=== PATIENT | male | born 1995 | race Caucasian/White ===

== ENCOUNTER 2019-02-02 01:57 | Inpatient (IN) | payer OTHER ==
[~2019-02-02] VITALS: Ht 182.9 cm; Wt 97.7 kg
[2019-02-02 01:59] VITALS: Ht 182.9 cm; Wt 97.7 kg
--- NOTE | 2019-02-02 03:37 | NUR ---
RECEIVED 23 Y/O M C/O OF LEFT LOWER GROIN/LEG PAIN AND SOB. PATIENT HAD A HERNIAL MESH REMOVAL ON FRIDAY FROM [facility] AND PER PT STATES THAT HE FEELS LIKE HIS BODY IS REJECTING THE MESH. TENDERNESS AND INFLAMMATION TO L GROIN AREA, WARM TO THE TOUCH, SUTURE SITE INFLAMED. THE PAIN TO THE PATIENT'S LEFT LEG AND L GROIN HERNIA SITE COMES AND GOES AND DESCRIBES THE PAIN A BURNING PINS AND NEEDLE TYPE PAIN. CLEAR LUNG SOUNDS TO BUL/BLL, EVEN AND UNLABORED BREATHING, SYMMETRICAL CHEST EXPANSION.
--- NOTE | 2019-02-02 05:01 | NUR ---
DR. CONNORS AT BEDSIDE FOR MSE.
--- NOTE | 2019-02-02 05:17 | NUR ---
TECH AT BEDSIDE FOR BLOOD DRAW.
[2019-02-02 05:32] LABS: BASOPHIL % 0.6 % (0-2); PLATELET COUNT 251 x10^3mcL (130-400); RED CELL DISTRIBUTION WIDTH 11.8 % (11.5-14.5)
[2019-02-02 05:36] LABS: CALCIUM 9.5 mg/dL (8.5-10.1); CARBON DIOXIDE 27.9 mmol/L (21-32); CHLORIDE SERUM 103 mmol/L (98-107); CREATININE SERUM 0.9 mg/dL (0.7-1.3); GFR1 > 60 mL/min; GLUCOSE SERUM 96 mg/dL (74-106); POTASSIUM SERUM 3.6 mmol/L (3.5-5.1); SODIUM SERUM 141 mmol/L (136-145)
[2019-02-02 05:39] LABS: ALBUMIN 4.2 g/dL (3.4-5.0); ALKALINE PHOSPHATASE 80 U/L (46-116); ALT/SGPT 44 U/L (16-63); AST/SGOT 24 U/L (15-37); BILIRUBIN TOTAL 1.4 mg/dL (0.20-1.00); LIPASE 108 IU/L (73-393); TOTAL PROTEIN, SERUM 8.1 g/dL (6.4-8.2)
--- NOTE | 2019-02-02 06:17 | NUR ---
PT BROUGHT BACK FROM [facility] VIA [facility] BY [employer]
[2019-02-02 06:41] LABS: microscopic required? NO
--- NOTE | 2019-02-02 07:10 | NUR ---
RECIEVED REPORT FROM SAIDA. I WILL RESUME CARE OF PATIENT.
[2019-02-02 07:11] LABS: UA SPECIFIC GRAVITY >=1.030 (1.005-1.035); urine erythrocyte NEGATIVE (NEGATIVE)
--- NOTE | 2019-02-02 08:10 | NUR ---
PT C/O SOB AND SHAKINESS ALL OVER. PT IS AAOX4, TACHY SINUS, SPO2 @99% ON ROOM AIR. NOTIFIED MD OF VS. EKG COMPLETED BY PAMELA MORGAN. BREATHING IS E/U, SKIN IS COOL AND CLAMMY, INCISION INTACT ON ABDOMEN. APPLIED OXYGEN 2L VIA NASAL CANNULA FOR COMFORT. OFFERED ICE PACK FOR INCISION SITE. PT WAS MEDICATED PER MD ORDERS. IV IN LAC FLUSHED WITH 10CC SALINE, PATENT AND NO PAIN AT THE SITE. MOM AT THE BEDSIDE. WILL CONT TO MONITOR.
--- NOTE | 2019-02-02 09:05 | NUR ---
GAVE REPORT TO JESSICA MORGAN ON TELE UNIT WHO WILL RESUME FURTHER CARE OF THIS PATIENT.
[2019-02-02] MEDS ORDERED: ADVIL200 MG (09:07)
[2019-02-02] MEDS ORDERED: QUALITY CHOICE200 M1 PO (09:11)
[2019-02-02 09:16] LABS: FREE T4 1.17 ng/dL (0.76-1.46); FREE THYROXINE INDEX 3.7 ug/dL (1.4-4.5); T4(THYROXINE) 10.8 ug/dL (4.7-13.3)
[2019-02-02 09:31] LABS: T3 TOTAL 1.32 ng/mL
[2019-02-02 09:35] LABS: AMPHETAMINE QUAL UR NONE DETECTED (See below)
--- NOTE | 2019-02-02 10:00 | NUR ---
ADMITTED FR.ER VIA [facility] BY ER NURSE.CHIEF C/O L GROIN PAIN AT 3/10 PAIN SCALE ALSO SOB.AAO X4.C/O L GROIN PAIN AT 3/10 PAIN SCALE.CLAIMS TO FEEL A LOT BETTER.LUNGS CLEAR.ON SR ON MONITOR #28,HR=72.ABD'L INCISSSION WITH DERMABOND X4 ON ABDOMEN AND L INGUINAL INCISSION WITH DERMABOND CDI.PT C/O TENDERNESS AND SWELLING ON L GROIN.ADMISSION ASSESSMENT AND HX COMPLETED.IVF NS STARTED AT 100 ML/HR INFUSING WELL.CALL LIGHT WITHIN REACH.INSTRUCTED TO CALL FOR ANY PAIN/DISCOMFORT.WILL CONTINUE TO MONITOR PT.
[2019-02-02 10:07] VITALS: BP 140/83
[2019-02-02 11:34] LABS: CHOLESTEROL/HDL RATIO 3.6; PHOSPHOROUS 3.9 mg/dL (2.5-4.9)
[2019-02-02 13:45] VITALS: BP 121/68
--- NOTE | 2019-02-02 16:09 | NUR ---
GAVE PT ATIVAN 1 MG IVP ORDERED PRN FOR PT HAVING SHAKINESS,AND FEELING SOB,V/S STABLE.SPO2 AT 100 % .INFORMED PT'S MOM WANTED TO TALK TO HIM.
--- NOTE | 2019-02-02 16:54 | NUR ---
WENT TO CHECK ON PT.MORE CALM AFTER THE ATIVAN 1 MG IVP.ALSO IS TALKING TO THE PT AND FAMILY.
[2019-02-02 17:00] VITALS: BP 141/90
--- NOTE | 2019-02-02 18:27 | NUR ---
NO SIGNIFICANT CHANGE NOTED.WILL ENDORSE TO NEXT SHIFT.
--- NOTE | 2019-02-02 19:30 | NUR ---
PT A/O x4. ON TELE #28, SR/ST. HR BETWEEN THE 90S AND LOW 100S. PT HAS IN AND OUT PANIC ATTACKS. PULSES ARE PRESENT. EDEMA NOTED ON L GROIN AREA. TENDER TO TOUCH AND SLIGHT ERYTHEMA NOTED. NO DRAINAGE NOTED, INCISION FROM PAST L HERNIA REMOVAL NOTED ON SITE. INCISION IS CLEAN AND INTACT, SAM. NO DRANIAGE NOTED. LUNGS CLEAR IN ALL FEILDS. ON RA, DENIES ANY SOB. EQUAL CHEST RISE AND FALL. BOWEL SOUNDS PRESENT X4. DENIES ANY ABD TENDERNESS OR DISTRESS. DENIES ANY PAIN AT THIS TIME. IV ON LAC INTACT AND PATENT. NO SIGN OF IRRITATION OR INFILTRATION NOTED. BED IS AT LOWEST SETTING. CALL LIGHT WITHIN REACH. SIDE RAILS UP x2 FOR PT SAFETY. WILL CONTIUE TO MONITOR.
[2019-02-02 21:04] VITALS: BP 115/67
--- NOTE | 2019-02-02 22:35 | NUR ---
PT C/O FEELING ANXIOUS. PT STATED HE FEELS LIKE HES OUT OF BREATH. PLACED ON 2L NC FOR COMFORT. PT SPO2 99%. GAVE PRN ATIVAN PER EMAR. WILL CONTINUE TO MONITOR.
--- NOTE | 2019-02-02 23:20 | NUR ---
PT IS C/O L GROIN PAIN AFTER HIS WALK AROUND THE NURSES STATION. PRN NORCO GIVEN. WILL CONTINUE TO MONITOR.
--- NOTE | 2019-02-03 00:31 | NUR ---
PT IS RESTING IN BED WITH BOTH EYES CLOSED. BREATHING EVEN AND UNALBRORED. NO SIGN OF DISTRESS NOTED. WILL CONTINUE TO MONTIOR.
[2019-02-03 05:51] VITALS: BP 101/51
--- NOTE | 2019-02-03 06:04 | NUR ---
PT RESTING IN BED. NO ACUTE EVENT OCCURED AT NIGHT. PT SEEMS NERVOUS. RELAXATION BREATHING ENCOURAGED, PT SEEMS MORES RELAXED AFTER DEEP BREATHING. IV INTACT AND PATENT. NO ACUTE EVENT OCCURED AT NIGHT. WILL ENDORSE TO AM NURSE.
[2019-02-03 06:33] LABS: CALCIUM 8.9 mg/dL (8.5-10.1); CARBON DIOXIDE 32.6 mmol/L (21-32); CHLORIDE SERUM 107 mmol/L (98-107); CREATININE SERUM 1.1 mg/dL (0.7-1.3); GFR1 > 60 mL/min; GLUCOSE SERUM 92 mg/dL (74-106); MAGNESIUM 1.9 mg/dL (1.8-2.4); PHOSPHOROUS 3.9 mg/dL (2.5-4.9); POTASSIUM SERUM 4.4 mmol/L (3.5-5.1); SODIUM SERUM 144 mmol/L (136-145)
--- NOTE | 2019-02-03 07:30 | NUR ---
PT ENDORSE TO ME THIS MORNING. LAYING IN BED RESTING. ASSIST PT UP TO BATHROOM.BREATHING EVEN AND UNLABORED ON RA, NO ACUTE RESP DISTRESS OR SOB NOTED. AA/O X4. TELE 28 SR NOTED 78 HR. DENIES ANY CP OR PRESSURE. LAST BM 02/01. VOIDS FREELY. AMB WIHT MINIMAL ASSIST. INCISION TO LOWER ABD INTACT/CLEAN/ NO NEW DRAINAGE NOTED. IV TO THE LAC INFUSING AT 100ML/HR, NO REDNESS OR SWELLING NOTED. CALL LIGHT IN REACH. BED IN LOW POSITION. WILL CONTINUE PLAN OF CARE.
[2019-02-03 07:54] VITALS: BP 124/76
--- NOTE | 2019-02-03 08:06 | NUR ---
PT C/O LOWER ABD PAIN 6/10 , MEDICATED PER EMAR.
[2019-02-03 08:07] VITALS: BP 124/76
[2019-02-03 08:15] LABS: BASOPHIL % 0.7 % (0-2); PLATELET COUNT 207 x10^3mcL (130-400); RED CELL DISTRIBUTION WIDTH 12.2 % (11.5-14.5)
--- NOTE | 2019-02-03 10:00 | NUR ---
PT C/O OF FEELING ANXIOUS, REFUSE TO TAKE MED, GAVE ICE PACK FOR BCK OF NECK. WANTS TO SPK TO DR. MASTERS, AWARE. WILL CONTINUE TO MONITOR.
--- NOTE | 2019-02-03 11:20 | NUR ---
DR. CASTAÑEDA AND TEAM MADE ROUNDS. WILL CONTINUE TO MONITOR.
[2019-02-03 12:08] VITALS: BP 129/76
[2019-02-03] MEDS ORDERED: NAP375 PO (13:16)
[2019-02-03] MEDS ORDERED: PAX20 PO (13:17)
[2019-02-03 13:53] VITALS: BP 129/76
[2019-02-03 14:11] VITALS: BP 129/76
[2019-02-03] MEDS ORDERED: IBUPROFEN400 MG PO (14:11)
--- NOTE | 2019-02-03 14:40 | NUR ---
EXPLAINED DISCHARGE INSTRUCTIONS TO PATIENT AND HIS MOTHER, FOLLOW UP APPOINT HE MUST MAKE WITH PRIMARY DOCTOR AND NEW MEDS. PT AGREED AND SIGNED ALL DOCUMENT. REOMOVE IV TO LAC/ CATHETER TIP INTACT/ NO REDNESS OR SWELLING NOTED. REMOVED TELE AND REMOVED. CALL LIGHT IN REACH/ BED IN LOW POSITION. WILL CONTINUE PLAN OF CARE.
[2019-02-03] MEDS ORDERED: AUGMENTIN 875-1 EACH PO (14:51)
--- NOTE | 2019-02-03 15:04 | NUR ---
WENT OVER ANOTHER MEDICATION PT MUST FOLLOW (AUGMENTIN PO) PT CLEAR ON ALL INSTRUCTIONS. HUMBERTO CONLEY WALKED PT DOWN TO D/C LOBBY. PT BREATHING EVEN AND UNLABORED ON RA. DENIES ANY ABD PAIN OR DISCOMFORT AT THIS TIME. HIS MOTHER WILL BE DRIVING. DISCHARGE.
== END 2019-02-03 15:03 | disposition home or self-care (01) | DRG 880 ==
LOC: ED 01:57 → DU 08:23
PROVIDERS: Emergency Medicine; ADMIT Internal Medicine
DX: F41.9 Anxiety disorder, unspecified (principal); E80.6 Other disorders of bilirubin metabolism; Z98.890 Other specified postprocedural states
CPT/HCPCS: 83880; 84439; 85378; J2060; J2270; J2405; J7030; Q0092; Q9967

== ENCOUNTER 2019-04-24 20:26 | Inpatient (IN) | payer OTHER ==
[~2019-04-24] VITALS: Ht 182.9 cm; Wt 97.7 kg
[~2019-04-24 20:26] MED LIST: ADVIL200 MG; AUGMENTIN 875-1 EACH PO; IBUPROFEN400 MG PO; NAP375 PO; PAX20 PO; QUALITY CHOICE200 M1 PO
[2019-04-24 20:46] VITALS: Ht 182.9 cm; Wt 97.7 kg
--- NOTE | 2019-04-24 23:26 | NUR ---
PT REFUSING FENTANYL AT THIS TIME. PT WANTS TO SEE IF TORADOL WILL HELP WITH HIS PAIN BEFORE GETTING FENTANYL.
--- NOTE | 2019-04-24 23:30 | NUR ---
PT PRESENTS TO ER TODAY WITH C/O OF GROIN PAIN THAT STARTED APPROX 3 MONTHS AGO AFTER A HERNIA REPAIR SURGERY. PT STATES THAT PAIN FROM SURGERY NEVER WENT AWAY AND HAS BEEN GETTING PROGRESSIVELY WORSE. PT STATES THAT THERE IS A SHARP PAIN THAT STARTS IN HIS GROIN AND TRVELS TO HIS TESTCILES AND LOWER BACK. PT REPORTS PAIN WITH URINATION BUT DENIES BLOOD. PT REPORTS TAKING NORCO FOR PAIN AT APPROX 1900 TODAY WITH SOME RELIEF OF PAIN. PT STATES HE HAS HAD MULTIPLE VISITS WITH OTHER DOCTORS WITH NO SOLUTION OR DX FOR HIS PAIN. PT IS A/O X4. RESP ARE EQUAL AND UNLABORED. NO ACUTE DISTRESS NOTED.
[2019-04-24 23:37] LABS: microscopic required? NO
[2019-04-24 23:44] LABS: BASOPHIL % 0.6 % (0-2); PLATELET COUNT 231 x10^3mcL (130-400); RED CELL DISTRIBUTION WIDTH 12.8 % (11.5-14.5)
[2019-04-24 23:45] LABS: UA SPECIFIC GRAVITY <=1.005 (1.005-1.035); urine erythrocyte NEGATIVE (NEGATIVE)
[2019-04-25 00:17] LABS: CALCIUM 9.4 mg/dL (8.5-10.1); CARBON DIOXIDE 31.8 mmol/L (21-32); CHLORIDE SERUM 103 mmol/L (98-107); CREATININE SERUM 1.3 mg/dL (0.7-1.3); GFR1 > 60 mL/min; GLUCOSE SERUM 104 mg/dL (74-106); POTASSIUM SERUM 3.3 mmol/L (3.5-5.1); SODIUM SERUM 141 mmol/L (136-145)
[2019-04-25 00:28] LABS: ALBUMIN 4.5 g/dL (3.4-5.0); ALKALINE PHOSPHATASE 64 U/L (46-116); ALT/SGPT 42 U/L (16-63); AST/SGOT 19 U/L (15-37); BILIRUBIN TOTAL 0.9 mg/dL (0.20-1.00); TOTAL PROTEIN, SERUM 7.7 g/dL (6.4-8.2)
[2019-04-25 00:34] LABS: CK-MB 1.5 ng/mL (0-3.6)
[2019-04-25 00:36] LABS: C REACTIVE PROTEIN < 0.2 mg/dL (<=0.9)
[2019-04-25 00:39] LABS: ERYTHROCYTE SED RATE 4 mm/hr (0-15)
--- NOTE | 2019-04-25 01:35 | NUR ---
PT NOTED TO BE OUTSIDE HIS ROOM LOOKING AROUND. WHEN ASKING PT IF HE NEEDS ANYTHING PT COMPLAINS THAT THE COLD AIR IS BURNING HIS SKIN. PT PROVIDED WITH BLANKETS. PT VITALS ARE WNL. PT RATES HIS PAIN A 5/10. NO ACUTE DISTRESS NOTED.
[2019-04-25] MEDS ORDERED: NORCO1 TA2 PO (02:12)
[2019-04-25] MEDS ORDERED: FLE10 PO (02:13)
--- NOTE | 2019-04-25 02:34 | NUR ---
REPORT GIVENT TO BRINA MORGAN TO ASSUME CARE OF PT.
--- NOTE | 2019-04-25 03:20 | NUR ---
PT ADMITTED FOR BODY ACHES DESCRIBED BY PT "BURNING AND CONSTANT" IN HIS LEFT GROIN RADIATING TO HIS TESICLES, GETTING WORSE OVER THE PAST COUPLE MONTHS SINCE HIS HERNIA REPAIR REVISION 01/26. APPEARS ANXIOUS. AOX4. TELE #34, SR. LUNGS CLEAR ON RA. PULSES PALPABLE. NO EDEMA. BOWEL SOUNDS HYPOACTIVE. C/O GROIN PAIN /10 AT THIS TIME. WILL MEDICATE PER EMAR. VOIDS FREELY. C/O DYSURIA. AMBULATORY. SKIN INTACT. IV TO RAC, PATENT AND INFUSING. ORIENTED TO ROOM. BED IN LOWEST POSITION, 2 SIDE RAILS UP, CALL LIGHT IN REACH. INSTRUCTED TO CALL FOR ASSISTANCE. MOTHER IS AT BEDSIDE.
[2019-04-25 03:33] VITALS: BP 139/97
[2019-04-25 04:18] LABS: CHOLESTEROL/HDL RATIO 3.7; MAGNESIUM 1.8 mg/dL (1.8-2.4); PHOSPHOROUS 3.4 mg/dL (2.5-4.9)
[2019-04-25 04:19] VITALS: BP 131/88
--- NOTE | 2019-04-25 07:15 | NUR ---
RECEIVED PT RESTING IN BED. AAOX4. RESP EVEN AND UNLABORED ON RA. PT STATED PAIN IS "STARTING TO GO UP" BUT DOES NOT SPECIFY PAIN LEVEL WHEN ASKED. PT ALSO C/O BEING COLD, GIVEN BLANKETS AND HEATER TURNED ON PER PT'S REQUEST. IVF INFUSING, NO REDNESS OR SWELLING TO IV SITE. MOTHER AT BEDSIDE. BED IN LOW POSITION, CALL LIGHT WITHIN REACH. WILL CONTINUE TO MONITOR.
[2019-04-25 08:11] VITALS: BP 147/87
--- NOTE | 2019-04-25 09:21 | NUR ---
PT AMBULATED TO BATHROOM WITHOUT ASSIST, GAIT STEADY. WILL CONTINUE TO MONITOR.
[2019-04-25 12:01] VITALS: BP 139/81
--- NOTE | 2019-04-25 12:27 | NUR ---
PT SITTING UP IN BED. NO ACUTE DISTRESS. STATED PAIN IS TOLERABLE AT THIS TIME, DOES NOT WANT PAIN MEDS. IVF INFUSING, NO REDNESS OR SWELLING. VISITORS AT BEDSIDE. CALL LIGHT WITHIN REACH. WILL CONTINUE TO MONITOR.
[2019-04-25 16:10] VITALS: BP 145/84
--- NOTE | 2019-04-25 17:31 | NUR ---
PT C/O BURNING SENSATION THROUGHOUT BODY AND FEELING HEAT AROUND L GROIN AREA. PT REQUESTED TO HAVE L GROIN AREA ASSESSED, NO INCREASED HEAT NOTED TO L GROIN. PT STATED THIS PROBLEM STARTED AFTER HIS MOST RECENT SURGERY AND HAS GOTTEN WORSE OVER TIME. PT OFFERED ICE PACKS, REPORTED SOME RELIEF. WILL CONTINUE TO MONITOR.
--- NOTE | 2019-04-25 18:22 | NUR ---
PT C/O CONSTIPATION, REQUESTED TO HAVE MEDICATION TO HELP HIM HAVE BM. DR. MASTERS NOTIFIED. WILL CONTINUE TO MONITOR.
[2019-04-25 19:40] VITALS: BP 139/93
--- NOTE | 2019-04-25 19:50 | NUR ---
AOX4. APPEARS ANXIOUS. TELE #34, SR. LUNGS CLEAR ON RA. PULSES PALPABLE. NO EDEMA. BOWEL SOUNDS ACTIVE. C/O GROIN PAIN THAT RADIATES TO TESTICLES DESCRIBED "BURNING AND CONSTANT" S/P HERNIA REPAIR REVISION 01/26, PAIN IS 4/10 PT DOES NOT WISH TO BE MEDICATED AT THIS TIME VOIDS FREELY. C/O DYSURIA. AMBULATORY. SKIN INTACT. IV TO RAC, PATENT AND INFUSING. SPOKE WITH DR EASTMAN REGARDING PT'S CASE. BED IN LOWEST POSITION, 2 SIDE RAILS UP, CALL LIGHT IN REACH. INSTRUCTED TO CALL FOR ASSISTANCE. FATHER IS AT BEDSIDE.
--- NOTE | 2019-04-26 03:37 | NUR ---
PT C/O BURNING TO SURGICAL SITE AND TESTES. MEDICATED WITH TORADOL FOR PAIN AND ATIVAN FOR ANXIETY, PER PT REQUEST
[2019-04-26 05:59] VITALS: BP 170/109
--- NOTE | 2019-04-26 06:14 | NUR ---
BP 170/[address] CAMPOVERDE NOTIFIED VIA [facility]. PT CONTINUES TO C/O GROIN/TESTES BURNING. NO ACUTE CHANGES. MOTHER AT BEDSIDE. WILL ENDORSE TO ONCOMING RN.
[2019-04-26 06:50] LABS: CALCIUM 10.2 mg/dL (8.5-10.1); CARBON DIOXIDE 26.9 mmol/L (21-32); CHLORIDE SERUM 109 mmol/L (98-107); GFR1 > 60 mL/min; GLUCOSE SERUM 90 mg/dL (74-106); POTASSIUM SERUM 4.5 mmol/L (3.5-5.1); SODIUM SERUM 148 mmol/L (136-145)
[2019-04-26 07:15] LABS: BASOPHIL % 0.8 % (0-2); PLATELET COUNT 223 x10^3mcL (130-400)
--- NOTE | 2019-04-26 07:28 | NUR ---
RECEIVED PT RESTING IN BED. AAOX4. RESP EVEN AND UNLABORED ON RA. C/O BURNING PAIN TO L GROIN AREA, DOES NOT WANT PAIN MEDICATIONS AT THIS TIME. PT ALSO OFFERED ICE PACKS, PT REFUSED. PT STATED "I WANT THE DOCTOR TO SEE HOW I'M DOING." IVF INFUSING, NO REDNESS OR SWELLING NOTED. MOTHER AT BEDSIDE. BED IN LOW POSITION, CALL LIGHT WITHIN REACH. WILL CONTINUE TO MONITOR.
--- NOTE | 2019-04-26 08:07 | NUR ---
PRABHA STRIPE MARKER AT BEDSIDE TO EVALUATE PT. STRIPE MARKER AWARE PT DOES NOT WANT IVF AT THIS TIME. ALSO AWARE OF PT'S CONCERNS REGARDING WORSENING BURNING SENSATION THROUGHOUT WHOLE BODY, TEMPORARILY RELIEVED BY COLD AIR AND LOSS OF SENSATION TO VOID AND HAVE BOWEL MOVEMENT. PT ALSO C/O FEELING HOT AND INCREASED REDNESS AROUND L GROIN AREA. PT REFUSING PAIN MEDS AT THIS TIME. PT AND MOTHER REQUESTING TO HAVE PT TRANSFERRED OUT TO [facility] OR TO BE DISCHARGED SO THEY CAN GO TO [facility] ER.
--- NOTE | 2019-04-26 08:48 | NUR ---
PT MEDICATED FOR PT PER EMAR. REPORTED BEING ABLE TO VOID A SMALL AMOUNT OF URINE. AMBULATING IN THE HALLWAYS. PT STATED HE WANTED TO WAIT FOR SURGICAL CONSULT TO EVALUATE HIM. KRISTOPHER POPCORN CANDY MAKER MADE AWARE. WILL CONTINUE TO MONITOR.
[2019-04-26 09:13] VITALS: BP 149/102
--- NOTE | 2019-04-26 10:46 | NUR ---
DR. EASTMAN AT BEDSIDE TO EVALUATE PT. PT'S MOTHER AND FATHER PRESENT AT BEDSIDE
--- NOTE | 2019-04-26 11:52 | NUR ---
PT AWAKE, ALERT, AND ORIENTED. VSS. AMBULATORY. TRANSPORTED VIA WHEELCHA[facility]. DISCHARGE EDUCATION PROVIDED, PT VERBALIZED UNDERSTANDING. INSTRUCTED PT TO FOLLOW UP WITH PCP. IV DC'D WITH CATHETER INTACT. TELE REMOVED. BELONGINGS WITH PT. PT GIVEN CD IMAGING ORDERED.
--- NOTE | 2019-04-26 11:56 | NUR ---
JARVIS PAUL ACCOMPANIED PT TO [facility]. SPOKE WITH ELDA ACE CM OVER THE PHONE REGARDING PT'S FATHER'S REQUEST TO SPEAK WITH HER ABOUT TRANSPORTATION AND INFORMED HER OF PT'S FATHER WANTING TO SPEAK IN PERSON. PT'S FATHER HAD VOICED INTENTION THAT HE WANTED TO TAKE HIS SON TO [facility] AND HAVE HIM TRANSPORTED VIA [facility]. AT TIME OF DISCHARGE WHILE PT AND FATHER WHERE AT NURSE'S STATION. CM WAS CALLED AND FATHER WAS ASKED IF WOULD LIKE TO SPEAK WITH THEM OVER THE PHONE TO ADDRESS HIS CONCERNS AND QUESTIONS. PT'S FATHER DID NOT WANT TO SPEAK WITH ELDA ACE OVER THE PHONE PRIOR TO DISCHARGE. PT'S FATHER REACHED FOR THE PHONE AND THER RETURN IT AND STATED "FORGET IT". PT AWAKE, ALERT, AND ORIENTED AT TIME OF DISCHARGE. AMBULATORY. STATED PAIN WAS ADEQUATELY RELIEVED BY TORADOL. JARVIS PAUL ACCOMPANIED PT TO [facility], TRANSPORTED VIA WHEELCHAIR.
== END 2019-04-26 12:11 | disposition home or self-care (01) | DRG 392 ==
LOC: ED 20:26 → MU 04-25 02:19 → DU 04-25 03:09
PROVIDERS: Specialist; ADMIT Internal Medicine
DX: R10.32 Left lower quadrant pain (principal); R10.31 Right lower quadrant pain; Z68.29 Body mass index [BMI] 29.0-29.9, adult; Z98.890 Other specified postprocedural states
CPT/HCPCS: G0378; J1885; J2405; J3010; J3490; J7030; Q9967

== ENCOUNTER 2019-07-31 23:16 | Emergency (ER) | payer OTHER ==
[~2019-07-31] VITALS: Ht 185.4 cm; Wt 97.1 kg
[~2019-07-31 23:16] MED LIST changes: +FLE10 PO; +NORCO1 TA2 PO
[2019-07-31 23:18] VITALS: Ht 185.4 cm; Wt 97.1 kg
[2019-08-01 01:07] VITALS: BP 146/98
== END 2019-08-01 02:46 | disposition home or self-care (01) ==
LOC: ED 23:16
DX: N45.1 Epididymitis (principal)
CPT/HCPCS: J1885; Q0092

== ENCOUNTER 2019-08-04 05:41 | Emergency (ER) | payer OTHER ==
[~2019-08-04] VITALS: Ht 185.4 cm; Wt 95.3 kg
[2019-08-04 05:44] VITALS: Ht 185.4 cm; Wt 95.3 kg
[2019-08-04 07:36] VITALS: BP 161/101
== END 2019-08-04 07:36 | disposition home or self-care (01) ==
LOC: ED 05:41
DX: N45.1 Epididymitis (principal)
CPT/HCPCS: J1885